=== PATIENT | female | born 1955 | race Caucasian/White ===

== ENCOUNTER 2017-02-20 12:46 | Emergency (ER) | payer OTHER ==
[~2017-02-20] VITALS: Ht 167.6 cm; Wt 63.5 kg
[~2017-02-20 12:46] MED LIST: ADULT LOW DOSE81 MG; ALPRAZOLAM; ALPRAZOLAM1 M1 PO; AMBIEN 10 MG TA10 MG PO; AMBIEN PO; ATIVAN0.5 MG PO; ATIVAN1 MG PO; BENTYL 20 MG TA20 M1 PO; CILOXAN5 ML OP; COMPAZINE5 MG PO; EFFEXOR; FLEXERIL PO; GOLYTELY4000 M1 GT; IBUPROFEN 400400 M2 PO; IBUPROFEN 800800 MG PO; LEXAPRO; LEXAPRO20 MG PO; LIPITOR; LIPITOR20 MG PO; MIRALAX255 GM PO; NAPROSYN500 MG PO; NAUSEA MED; NORCO 5-325 TA1 EACH PO; NORTRIPTYLINE; NORTRIPTYLINE H25 M3 PO; PENICILLIN VK500 MG PO; PERCOCET 5-3251 EACH PO; PHENERGAN 25 MG25 M1 PO; PREVACID30 M1 PO; PROTONIX40 MG PO; REGLAN 10 MG TA10 MG PO; ULTRAM 50MG TAB50 MG PO; VIBRAMYCIN 100100 MG PO; VICODIN; XANAX; XANAX XR1 MG; ZANTAC 150MG T150 M1 PO; ZANTAC150 M2 PO; ZOFRAN ODT4 MG PO
[2017-02-20] MEDS ORDERED: DOXYCYCLINE 10100 MG PO (13:02)
[2017-02-20] MEDS ORDERED: NORCO 5-325 TA1 EACH PO (13:02)
== END 2017-02-20 16:39 | disposition home or self-care (01) ==
LOC: ER 12:46
DX: S46.001A Unspecified injury of muscle(s) and tendon(s) of the rotator cuff of right shoulder, initial encounter (principal); N61.0 Mastitis without abscess; F32.9 Major depressive disorder, single episode, unspecified; F41.9 Anxiety disorder, unspecified; F17.210 Nicotine dependence, cigarettes, uncomplicated; F10.99 Alcohol use, unspecified with unspecified alcohol-induced disorder; Z88.2 Allergy status to sulfonamides; W01.0XXA Fall on same level from slipping, tripping and stumbling without subsequent striking against object, initial encounter; Y93.89 Activity, other specified; Y92.89 Other specified places as the place of occurrence of the external cause; Y99.8 Other external cause status